=== PATIENT | male | born 2000 | race Caucasian/White ===

== ENCOUNTER 2025-02-19 02:03 | Emergency (ER) | payer MEDICAID, OTHER ==
[~2025-02-19] VITALS: Ht 172.7 cm; Wt 70.4 kg
[2025-02-19 02:49] LABS: Hematocrit 46.2 % (41.0-53.0); Hemoglobin 15.6 g/dL (13.5-17.5); Mean Corpuscular Hemoglobin 29.0 pg (28.0-32.0); Mean Corpuscular Volume 86.1 fL (80.0-100.0); Nucleated Red Blood Cells % 0.1 %
--- NOTE | 2025-02-19 02:51 | ED.PDOC ---
History of Present Illness HPI Comments 25 y/o M is BIBA from private residence for c/c of back pain. Patient has a significant history of scoliosis with chronic back pain. He comments on sudden, unprovoked, and atraumatic onset of symptoms, which awoke him, this morning. Patient then reports on going to grab a bottle of water and then waking up on the floor, suspecting on passing out. Denial of any further acute symptoms. Chief Complaint: Syncope Time Seen by MD: 02:30 Reviewed Notes: Nurses Notes, Medications, Allergies Allergies: Coded Allergies: NO KNOWN ALLERGIES (Unverified , 02/19/25) Home Meds Active Scripts Ibuprofen Micronized (MOTRIN TABLET) 600 Mg Tb, 600 MG PO TID PRN for 3 Days, #9 TAB *Black box warning-NSAIDS can increase risk of RI & hypertension, GI irritation, ulceration, bleed, perferation. Do not use post cardiac surgery. Use short duration/lowest effective dose. Prov:ROXANA HANNAH MD 02/19/25 Amoxicillin & Pot Clavulanate (Augmentin) 500 Mg Tab, 1 TAB PO BID for 10 Days, #20 TAB Prov:ROXANA HANNAH MD 02/19/25 Information Source: Patient Mode of Arrival: EMS Severity: Moderate Timing: Hours Duration: Since onset Prehospital treatment: None Past Medical History PAST MEDICAL HISTORY: Denies Surgical History: Denies all surgeries Social History Smoker: Non-Smoker Alcohol: Denies ETOH Use Drugs: Denies Drug Use Lives In: Home All Other Systems: Reviewed and Negative (Comprehensive review of systems are negative unless stated in HPI) Physical Exam General Appearance: Moderate Distress HEENT: Normal ENT Inspection, Pharynx Normal, TMs Normal Neck: Full Range of Motion, Non-Tender, Normal, Normal Inspection Respiratory: Chest Non-Tender, Lungs Clear, No Accessory Muscle Use, No Respiratory Distress, Normal Breath Sounds Cardiovascular: No Edema, No JVD, No Murmur, No Gallop, Normal Peripheral Pulses, Regular Rate/Rhythm Breast Exam: Deferred Gastrointestinal: No Organomegaly, Non Tender, No Pulsatile Mass, Normal Bowel Sounds, Soft Genitalia: Deferred Pelvic: Deferred Rectal: Deferred Extremities: No calf tenderness, No pedal edema Musculoskeletal : Apperance: Normal Neurologic: Alert, No Motor Deficits, No Sensory Deficits Cerebellar Function: NOT DONE Reflexes: NOT DONE Skin: Normal Color Peripheral Pulses: 3+ Radial (R), 3+ Radial (L) Lymphatic: No Adenopathy Was a procedure done? Was a procedure done?: No Differential Dx Considerations may include: chronic pain syndrome, sciatica, DDD, fracture, sprain, among others X-Ray, Labs, Meds, VS Vital Signs Date Time Temp Pulse Resp B/P (MAP) Pulse Ox O2 Delivery O2 Flow Rate FiO2 02/19/25 03:44 79 20 120/69 (86) 95 02/19/25 02:50 97.9 75 12 122/79 (93) 92 97.9 02/19/25 02:50 Room Air* 0 21 02/19/25 02:03 98.2 93 17 123/73 96 98.2 Lab Test 02/19/25 02:30 Range/Units White Blood Count 9.4 4.4-10.8 10^3/uL Red Blood Count 5.36 4.5-5.90 10^6/uL Hemoglobin 15.6 13.5-17.5 g/dL Hematocrit 46.2 41.0-53.0 % Mean Corpuscular Volume 86.1 80.0-100.0 fL Mean Corpuscular Hemoglobin 29.0 28.0-32.0 pg Mean Corpuscular Hemoglobin Concent 33.7 32.0-36.0 g/dL Red Cell Distribution Width 13.5 11.8-14.3 % Platelet Count 290 140-450 10^3/uL Mean Platelet Volume 8.8 6.9-10.8 fL Neutrophils (%) (Auto) 62.6 37.0-80.0 % Lymphocytes (%) (Auto) 27.0 10.0-50.0 % Monocytes (%) (Auto) 7.9 0.0-12.0 % Eosinophils (%) (Auto) 1.5 0.0-7.0 % Basophils (%) (Auto) 1.0 0.0-2.0 % Neutrophils # (Auto) 5.9 1.6-8.6 10 ^3/uL Lymphocytes # (Auto) 2.5 0.4-5.4 10 ^3/uL Monocytes # (Auto) 0.7 0-1.3 10 ^3/uL Eosinophils # (Auto) 0.1 0-0.8 10 ^3/uL Basophils # (Auto) 0.1 0-0.2 10 ^3/uL Nucleated Red Blood Cells 0.1 % Sodium Level 139 136-145 mmol/L Potassium Level 4.5 3.5-5.1 mmol/L Chloride Level 103 98-107 mmol/L Carbon Dioxide Level 25 20-31 mmol/L Anion Gap 11 5-15 Blood Urea Nitrogen 9 9-23 mg/dL Creatinine 0.95 0.700-1.30 mg/dL Glomerular Filtration Rate Calc 115 >90 mL/min BUN/Creatinine Ratio 9.5 L 10.0-20.0 Serum Glucose 101 74-106 mg/dL Calcium Level 9.3 8.7-10.4 mg/dL Troponin I High Sensitivity < 3 L </=54 ng/L Current Medications Medications (Trade) Dose Ordered Sig/Nohemi Route Start Time Stop Time Status Last Admin Ketorolac Tromethamine (Toradol Injection) 60 mg ONCE ONCE IM 02/19/25 02:30 02/19/25 02:31 DC 02/19/25 02:52 Acetaminophen/ Hydrocodone Bitart ([place] 10/325MG Tab) 1 tab ONCE ONCE PO 02/19/25 03:45 02/19/25 03:46 DC 02/19/25 03:40 [place] [address] Ph: [phone] DIAGNOSTIC IMAGING Diagnostic Imaging Report : [id number] Signed PATIENT: MELISSA CASTELLANO ACCT: [id number] UNIT: [id number] : 2000 LOC: ER ROOM / BED: / AGE / SEX: 25 / M ADM STATUS: REG ER SERVICE [id number] ORDERING PHYSICIAN: ROXANA HANNAH MD PROCEDURE(s): CXRP - CHEST PORTABLE REASON: sob ORDER NUMBER(s): [id number], ACCESSION NUMBER(s): [id number] CHEST RADIOGRAPH Indication: sob Technique: 1 view Comparison: None FINDINGS: Lines and Tubes: None Lungs/Pleura: Perihilar interstitial prominence. No focal consolidation, pleural effusion or pneumothorax. Cardiomediastinum: Unremarkable. Other: No acute osseous abnormality. IMPRESSION: 1. Interstitial opacities without consolidation may represent edema, pneumonitis/atypical infection, or exam related artifact. ATED BY: DEMETRIA FOLEY MD DICTATED DATE/TIME: 02/19/25415 SIGNED BY: DEMETRIA FOLEY MD SIGNED DATE/TIME: 02/19/25415 CC: Patient alert pain Came in because of back pain. Vitals stable. Answering all questions. Was given pain medication. WBC within normal limits. Hemoglobin within normal limits. Heart rate within normal limits. Cardiac marker within normal limits. Syncope from pain. Chronic in nature. He was comfortable throughout the ER visit. Chest x-ray reviewed does not show any acute changes. Does have sinusitis on clinical examination. Was given prescription Augmentin antibiotic. Explained to the patient Was told to follow up with his primary care physician. Was told to come back if there is any problem. Time of 1ST Reevaluation: 03:00 Reevaluation 1ST: Unchanged Patient Education/Counseling: Diagnosis, Treatment Family Education/Counseling: No Family Present SEPSIS Sepsis Screen Date sepsis recognized/suspect: Feb 19, 2025 Time Sepsis recognized/suspect: 020 Recent Procedure: No On Antibiotic Therapy: No Respiratory Rate >20: No Heart Rate >90: No Temp<36 C (96.8 F) or >38.3 C: No SBP <90 or MAP <65 mmHG: No New Acute Mental Status Change: No Is the patient on CPAP, BIPAP,: No Physician Orders Chest Portable (02/19/25 03:47) Vital Signs Date Time Temp Pulse Resp B/P (MAP) Pulse Ox O2 Delivery O2 Flow Rate FiO2 02/19/25 03:44 79 20 120/69 (86) 95 02/19/25 02:50 97.9 75 12 122/79 (93) 92 97.9 02/19/25 02:50 Room Air* 0 21 02/19/25 02:03 98.2 93 17 123/73 96 98.2 Laboratory Tests Test 02/19/25 02:30 White Blood Count 9.4 10^3/uL (4.4-10.8) Medications Medications Dose Ordered Sig/Nohemi Route Start Time Stop Time Status Last Admin Dose Admin Acetaminophen/ Hydrocodone Bitart 1 tab ONCE ONCE PO 02/19/25 03:45 02/19/25 03:46 DC 02/19/25 03:40 Ketorolac Tromethamine 60 mg ONCE ONCE IM 02/19/25 02:30 02/19/25 02:31 DC 02/19/25 02:52 Departure 1 Departure Time of Disposition: 04:21 Impression: Primary Impression: Sinusitis Qualified Codes: J01.10 - Acute frontal sinusitis, unspecified Additional Impression: Chronic pain syndrome Disposition: 01 HOME / SELF CARE / HOMELESS Condition: Good e-Prescriptions Ibuprofen Micronized (MOTRIN TABLET) 600 Mg Tb 600 MG PO TID PRN for 3 Days, #9 TAB *Black box warning-NSAIDS can increase risk of RI & hypertension, GI irritation, ulceration, bleed, perferation. Do not use post cardiac surgery. Use short duration/lowest effective dose. Prov: ROXANA HANNAH MD 02/19/25 Amoxicillin & Pot Clavulanate (Augmentin) 500 Mg Tab 1 TAB PO BID for 10 Days, #20 TAB Prov: ROXANA HANNAH MD 02/19/25 Discharged With: Self Critical Care Note Critical Care Time?: No Stability Stability form required: No Heart Score Heart Score: Heart Score Response (Comments) Value History N/A 0 EKG N/A 0 Age N/A 0 Risk Factors N/A 0 Troponin N/A 0 Total 0 I personally scribed for ROXANA HANNAH MD ([email or web address]) on 02/19/25 at 02:51. Electronically submitted by Manuel Rausch ([email or web address]). I personally scribed for ROXANA HANNAH MD ([email or web address]) on 02/19/25 at 04:52. Electronically submitted by Manuel Rausch ([email or web address]). ROXANA HANNAH MD Feb 19, 2025 02:51
[2025-02-19] MEDS: KETOROLAC TROMETH 60MG/2ML VIAL IM ONE (02:52)
[2025-02-19 03:00] LABS: Chloride 103 mmol/L (98-107); Potassium 4.5 mmol/L (3.5-5.1); Sodium 139 mmol/L (136-145)
[2025-02-19 03:01] LABS: Anion Gap 11 (5-15); Carbon Dioxide 25 mmol/L (20-31)
[2025-02-19 03:02] LABS: Calcium 9.3 mg/dL (8.7-10.4)
[2025-02-19 03:06] LABS: BUN/Creatinine Ratio 9.5 (10.0-20.0); Blood Urea Nitrogen 9 mg/dL (9-23); Glucose 101 mg/dL (74-106)
[2025-02-19] MEDS: HYDROcodone-ACET 10/325MG TAB PO ONE (03:40)
--- NOTE | 2025-02-19 04:18 | DVH ---
CHEST RADIOGRAPH Indication: sob Technique: 1 view Comparison: None FINDINGS: Lines and Tubes: None Lungs/Pleura: Perihilar interstitial prominence. No focal consolidation, pleural effusion or pneumoth orax. Cardiomediastinum: Unremarkable. Other: No acute osseous abnormality. IMPRESSION: 1. Interstitial opacities without consolidation may represent edema, pneumonitis/atypical infection, or exam related artifact.
[2025-02-19] MEDS ORDERED: IBU600T PO (04:23)
[2025-02-19] MEDS ORDERED: AMOX500T86 PO (04:23)
[2025-02-19 06:00] VITALS: BP 124/89; PULSE 76; RESP 17; TEMP 97.7; O2SAT 95
== END 2025-02-19 06:10 | disposition home or self-care (01) ==
LOC: EDBD 02:03 → ER 02:03
DX: J01.90 Acute sinusitis, unspecified (principal); G89.4 Chronic pain syndrome; Z79.899 Other long term (current) drug therapy
CPT/HCPCS: 36415; 71045; 80048; 84484; 85025; 96372; 99284; J1885